=== PATIENT | female | born 1995 | race Caucasian/White ===

== ENCOUNTER 2016-10-12 16:54 | Emergency (ER) | payer BC ==
--- NOTE | 2016-10-12 18:07 | UCPHY ---
H & P Time Seen by Provider: 10/12/16 18:04 Patient Type: New HPI/ROS: CHIEF COMPLAINT: Cough, vaginal bleeding HISTORY OF PRESENT ILLNESS: 21-year-old female states that she has had a severe cough for 5 days. Today she was coughing violently and felt a pain in her lower abdomen. She then had some vaginal bleeding. She states she has a ParaGard IUD and that in the past she has has had the IUD become slightly malpositioned and "scrape" her uterine cavity resulting in some vaginal bleeding. Patient was seen by myself briefly at triage and I advised the patient that we do not have an ultrasound available at the [facility] at this time and that it would be appropriate for her to go to an emergency department. However she adamantly states that this vaginal bleeding has occurred previously, that she is not concerned regarding her IUD, that she only wants to have her cough checked. She does not report a fever. Sputum is green and dark yellow. No history of asthma. No fever, chills, chest pain, shortness of breath, palpitations, vomiting, diarrhea, urinary complaints, headache, lightheadedness. REVIEW OF SYSTEMS: Aside from elements discussed in the HPI, a comprehensive 10-point review of systems was reviewed and is negative. PAST MEDICAL HISTORY: Patient denies. She is allergic to hormonal therapies. Uses a cane ParaGard IUD for contraception. SOCIAL HISTORY: Nonsmoker. VITAL SIGNS Reviewed by me. GENERAL: Well-developed, well-nourished, resting comfortably in no respiratory distress. HEENT: Atraumatic. Eyes: No icterus, no injection. Mouth: moist mucous membranes. No erythema or lesions. No tonsillar enlargement. No exudates. Neck : supple with no adenopathy. LUNGS: Clear to auscultation bilaterally, no wheezes, rhonchi or rales. CARDIAC: Regular rate and rhythm, no rubs, murmurs or gallops. ABDOMEN: Soft, very mild right low quadrant tenderness. No guarding or rebound. Bowel sounds normal. BACK: No CVA tenderness. EXTREMITIES: No trauma. No edema. Range of motion is normal throughout. NEURO: Alert and oriented, grossly nonfocal. SKIN: Warm and dry, no rash. PSYCHIATRIC: Normal mentation, no agitation. Smoking Status: Never smoked Constitutional: Initial Vital Signs Temperature (C) 36.6 C 02/18/17 17:04 Heart Rate 94 10/12/16 17:04 Respiratory Rate 16 10/12/16 17:04 Blood Pressure 131/83 H 10/12/16 17:04 O2 Sat (%) 98 10/12/16 17:04 O2 Delivery Mode Room Air Allergies/Adverse Reactions: artificial hormones Allergy (Unknown, Uncoded 10/12/16 17:10) Other-Enter Comments Home Medications: Medication Instructions Recorded AZITHROMYCIN [Z-PACK] 250 - 500 mg PO DAILY #6 tab 10/12/16 Paragard 10/12/16 Medical Decision Making ED Course/Re-evaluation: Urine test is negative. Patient reports mild bleeding and no cramps. She does not wish further evaluation for her uterine bleeding. She does not have a enlisted aircrew/aerial observer/gunner doctor here so she was given referral to Dr. Gina Bullock. I did stress to her the importance of having her vaginal bleeding an IUD positioning evaluated. Patient is placed on azithromycin for bronchitis. Differential Diagnosis: Differential diagnosis for the patient's cough was considered including but not limited to viral versus bacterial bronchitis, asthma, pulmonary emboli, upper respiratory infection, lower respiratory infection, and bronchospasm. - Data Points Laboratory Results: 10/12/16 18:15 Urine Test NEGATIVE Departure - Departure Disposition: Home, Routine, Self-Care Clinical Impression: Bronchitis, Dysfunctional uterine bleeding Condition: Good Instructions: Acute Bronchitis (ED) Additional Instructions: Take antibiotics as directed. Consider using zinc cold remedy when you start to developed an upper respiratory infection. We have discussed obtaining an ultrasound to further evaluate your vaginal bleeding. You understand that there is not ultrasound available at urgent care. You understand the importance of follow-up with an OBGYN as well as urgent follow-up if the bleeding continues, or you develop worsening pain. Referrals: NONE *PRIMARY CARE P,. [Primary Care Provider] - As per Instructions Gina Bullock MD [Medical Doctor] - As per Instructions (Please establish care with Dr. Bullock or 1 of her colleagues. She is an OBGYN.) Prescriptions: AZITHROMYCIN [Z-PACK] 250 - 500 mg PO DAILY #6 tab - PQRS PQRS Measurement: Not applicable
[2016-10-12 18:53] VITALS: BP 129/80; PULSE 78; RESP 20; TEMP 98.2; O2SAT 95
== END 2016-10-12 18:51 | disposition home or self-care (01) ==
LOC: CED 16:54
DX: J20.9 Acute bronchitis, unspecified (principal); N93.9 Abnormal uterine and vaginal bleeding, unspecified; R10.30 Lower abdominal pain, unspecified; Z97.5 Presence of (intrauterine) contraceptive device
CPT/HCPCS: 81025-PO; 99203-PO; G0463-PO